=== PATIENT | male | born 1945 | race Caucasian/White ===

== ENCOUNTER 2018-08-07 18:21 | Emergency (ER) | payer MEDICARE, OTHER ==
[~2018-08-07] VITALS: Ht 175.3 cm; Wt 93.0 kg
[2018-08-07 19:00] VITALS: BP 134/63
[2018-08-07] MEDS ORDERED: FLUORESCEIN OPHTH TEST STRIP. OD ONE (20:00)
[2018-08-07] MEDS ORDERED: TETRACAINE 0.5% OPHTH SOLUTION 4ML BOTTLE. OD ONE (20:00)
--- NOTE | 2018-08-07 20:28 | PHYS DOC ---
Past Medical History Past Surgical History: No Surgical History Alcohol Use: None Drug Use: None Adult General Chief Complaint Chief Complaint: FOREIGN BODY/EYES HPI HPI Patient is a 72 year old male who presents with a piece of metal in the right eye, patient states he was cutting metal with eye protection on and believes a piece of metal got into the eye. Patient denies any vision loss. Review of Systems Review of Systems Constitutional: Denies fever or chills [] Eyes: Reports Metal in the right eye. Denies change in visual acuity, redness, or eye pain [] Integument: Denies rash or skin lesions [] Neurologic: Denies headache, focal weakness or sensory changes [] All other systems were reviewed and found to be within normal limits, except as documented in this note. Current Medications Current Medications Current Medications Medications (Trade) Dose Ordered Sig/Allan Start Time Stop Time Status Last Admin Dose Admin Fluorescein Sodium (Ful-Abida) 1 strip 1X ONCE 08/07/18 20:00 08/07/18 20:01 DC Tetracaine HCl (Tetracaine) 1 drop 1X ONCE 08/07/18 20:00 08/07/18 20:01 DC Allergies Allergies Allergies Coded Allergies Type Severity Reaction Last Updated Verified No Known Drug Allergies 08/07/18 No Physical Exam Physical Exam Constitutional: Well developed, well nourished, no acute distress, non-toxic appearance. [] HENT: Normocephalic, atraumatic, bilateral external ears normal, oropharynx moist, no oral exudates, nose normal. [] Eyes: PERRLA, EOMI, I tiny piece of metal can be seen on the right eye at approximately 1500 position, clear discharge to the right eye Skin: Warm, dry, no erythema, no rash. [] Back: No tenderness, no CVA tenderness. [] Extremities: No tenderness, no cyanosis, no clubbing, ROM intact, no edema. [] Neurologic: Alert and oriented X 3, normal motor function, normal sensory function, no focal deficits noted. [] Psychologic: Affect normal, judgement normal, mood normal. [] Current Patient Data Vital Signs Vital Signs Date Time Temp Pulse Resp B/P (MAP) Pulse Ox O2 Delivery O2 Flow Rate FiO2 08/07/18 19:00 97.7 108 18 134/63 (86) 94 Room Air 97.7 EKG EKG [] Radiology/Procedures Radiology/Procedures [] Course & Med Decision Making Course & Med Decision Making Pertinent Labs and Imaging studies reviewed. (See chart for details) This is a 72-year-old male patient who presents to the ED today with a piece of metal in the right eye that occurred a couple minutes prior to coming to the ED. Unfortunately we have no Won needles. Patient was informed, he was very upset, he states he called this hospital before coming in asking if we can remove the piece of metal, he states he was informed to come in and get evaluated. He is very disappointed stating they should've told him we do not have the right equipment and he would not have come in. Apologized to patient, gave him an option to contact [facility] tomorrow morning and follow-up. Gave him an option to numb the eye and also PRN pain pills which he refused. He walked away with the . [place] Disclaimer Dragon Disclaimer This electronic medical record was generated, in whole or in part, using a voice recognition dictation system. Departure Departure Impression: Primary Impression: Corneal rust ring of right eye Disposition: 01 HOME, SELF-CARE Condition: STABLE Referrals: UNKNOWN PCP NAME (PCP) LOY MERRITT APRN Aug 07, 2018 20:28
== END 2018-08-07 20:05 | disposition home or self-care (01) ==
LOC: ER 18:21
DX: T15.91XA Foreign body on external eye, part unspecified, right eye, initial encounter (principal); X58.XXXA Exposure to other specified factors, initial encounter; Y93.89 Activity, other specified; Y92.89 Other specified places as the place of occurrence of the external cause; Y99.8 Other external cause status
CPT/HCPCS: 99281